=== PATIENT | female | born 1985 | race Caucasian/White ===

== ENCOUNTER 2020-09-04 16:33 | Outpatient (CLI) | payer OTHER ==
--- NOTE | 2020-09-04 17:24 | Non Stress Test Report ---
Non Stress Test Datetime Report Generated by CPN: 09/04/2020 17:23 DEMOGRAPHIC Test Number: 1 EGA NST: 38.1 INDICATION Indication for Study (NST) Other: repeat NST. NR in office VITAL SIGNS Temperature - NST: 97.1 Pulse - NST: 100 RESP - NST: 18 NBPSYS NST: 101 NBPDIA NST: 59 MONITORING Monitor Explained: Monitor Explained; Test Explained; Patient Verbalized Understanding Time on Monitor: 09/04/2020 16:46 Time off Monitor: 09/04/2020 17:08 NST Duration: 22 NST INTERVENTIONS NST Interventions: PO Hydration; Reposition Patient Physician Notified NST: N Mccormick CNM BABY A: [id number] BABY A Movement : Present Contraction Frequency : x1 Accelerations : 15X15 Decelerations : None Variability : Moderate 6-25bpm NST Review: Meets Criteria for Reactive NST NST Review and Verified By : Juliet Costa RN NST Results: Reactive NST REPORT Report Trigger: Send Report Report Trigger: Send Report
== END 2020-09-04 17:18 | disposition home or self-care (01) ==
LOC: LC 16:33
PROVIDERS: ATTEND Obstetrics & Gynecology
DX: O09.523 Supervision of elderly multigravida, third trimester (principal); Z3A.38 38 weeks gestation of pregnancy
CPT/HCPCS: 59025